=== PATIENT | male | born 1960 | race Caucasian/White ===

== ENCOUNTER 2019-08-07 15:55 | Inpatient (IN) ==
[2019-08-07] MEDS ORDERED: Acetaminophen IV 1,000 MG/100 ML INFUS..BTL IVPB ONE (20:37)
[2019-08-07] MEDS ORDERED: Morphine PCA 30 MG/ 30 ML 30 ML PCA.VIAL IVC PRN (20:46)
[2019-08-07] MEDS ORDERED: 0.9 % Sodium Chloride 1,000 ML IVC SCH (21:00)
[2019-08-07] MEDS ORDERED: Gabapentin 300 MG CAPSULE PO SCH (21:00)
[2019-08-07] MEDS ORDERED: Pantoprazole 40 MG VIAL IVP SCH (21:00)
[2019-08-07] MEDS ORDERED: Ondansetron 4 MG/2 ML VIAL IVP PRN (21:05)
[2019-08-07] MEDS ORDERED: *HR* Succinylcholine 200 MG/10 ML VIAL IVP ONE ×2 (21:24→22:50)
[2019-08-07] MEDS ORDERED: *HR* Propofol 200 MG/20 ML VIAL IVP ONE (21:24)
[2019-08-07] MEDS ORDERED: *HR* Midazolam HCl 2 MG/2 ML VIAL ONE (21:24)
[2019-08-07] MEDS ORDERED: Lidocaine -MPF 2% 2 ML VIAL ONE (21:24)
[2019-08-07] MEDS ORDERED: Lidocaine -MPF 4% 5 ML AMPUL ONE (21:24)
[2019-08-07] MEDS ORDERED: *HR* FentaNYL (PF) 100 MCG/2 ML VIAL ONE (21:24)
[2019-08-07] MEDS ORDERED: *HR* Rocuronium Bromide 50 MG/5 ML VIAL ONE (21:24)
[2019-08-07 21:33] LABS: Basophils % 0.2 %; Eosinophils % 0.1 %; Hematocrit 35.7 % (37.5-50.1); Immature Granulocytes % 0.6 % (0-4); Lymphocytes # 0.8 K/mcL (0.6-4.6); Mean Corpuscular HGB Conc 33.6 g/dL (31.6-35.5); Mean Corpuscular Hemoglobin 31.3 pg (28.0-33.3); Mean Platelet Volume 9.9 fL (9.4-12.4); Monocytes # 0.6 K/mcL (0.0-1.3); Monocytes % 4.4 %; Neutrophils # 11.2 K/mcL (1.6-8.9); Platelet Count 205 K/mcL (140-400); Red Blood Count 3.84 M/mcL (4.19-5.50); Red Cell Distribution Width 14.7 % (11.5-14.5); Segmented Neutrophils % 88.7 %; White Blood Count 12.6 K/mcL (4.3-11.1)
[2019-08-07 21:47] LABS: BUN/Creatinine Ratio 16 (6-26); Blood Urea Nitrogen 17 mg/dL (6-20); Calcium 8.1 mg/dL (8.6-10.3); Carbon Dioxide 19 mEq/L (23-29); Chloride 108 mEq/L (98-107); Glucose 129 mg/dL (70-105); Osmolality,Calculated 279 (280-300); Potassium 3.8 mEq/L (3.5-5.1); Sodium 133 mEq/L (136-145); eGFR For African Americans > 60 (> 60); eGFR For Non-African Americans > 60 (> 60)
[2019-08-07] MEDS ORDERED: Acetaminophen IV 1,000 MG/100 ML INFUS..BTL ONE (22:37)
[2019-08-07] MEDS ORDERED: Famotidine 20 MG/2 ML VIAL ONE (22:37)
[2019-08-07] MEDS ORDERED: Lacri-Lube 3.5 GM TUBE ONE (23:08)
[2019-08-07] MEDS ORDERED: *HR* PHENYLEPHRINE 1,000 MCG/10 ML SYRINGE IVP ONE (23:21)
[2019-08-07] MEDS ORDERED: *HR* Magnesium Sulfate 1 GM/2 ML VIAL ONE (23:52)
[2019-08-07] MEDS ORDERED: Ondansetron 4 MG/2 ML VIAL ONE (23:56)
[2019-08-08] MEDS ORDERED: Piperacillin/Tazobactam 3.375 GM in 0.9 % Sodium Chloride Mini Bag 100 ML IVPB SCH
[2019-08-08] MEDS ORDERED: Acetaminophen IV 1,000 MG/100 ML INFUS..BTL IVPB SCH (02:00)
[2019-08-08] MEDS ORDERED: Ondansetron 4 MG/2 ML VIAL IVP PRN (02:04)
[2019-08-08] MEDS: Morphine PCA 30 MG/ 30 ML 30 ML PCA.VIAL IVC PRN ×2 (03:16→17:48)
[2019-08-08] MEDS: 0.9 % Sodium Chloride 1,000 ML IVC SCH ×3 (03:25→21:22)
[2019-08-08] MEDS: Piperacillin/Tazobactam 3.375 GM in 0.9 % Sodium Chloride Mini Bag 100 ML IVPB SCH ×3 (05:52→21:21)
[2019-08-08] MEDS: *HR* Heparin 5,000 UNIT/ML VIAL SQ SCH ×3 (05:52→17:33)
[2019-08-08] MEDS ORDERED: *HR* Heparin 5,000 UNIT/ML VIAL SQ SCH (06:00)
[2019-08-08 06:09] LABS: Basophils % 0.2 %; Eosinophils % 0.1 %; Hematocrit 31.1 % (37.5-50.1); Hemoglobin 10.4 g/dL (12.9-16.9); Immature Granulocytes % 0.4 % (0-4); Lymphocytes # 0.5 K/mcL (0.6-4.6); Lymphocytes % 4.6 %; Mean Corpuscular HGB Conc 33.4 g/dL (31.6-35.5); Mean Corpuscular Hemoglobin 32.4 pg (28.0-33.3); Mean Corpuscular Volume 96.9 fL (83.0-100.0); Mean Platelet Volume 9.7 fL (9.4-12.4); Monocytes # 0.3 K/mcL (0.0-1.3); Monocytes % 3.3 %; Neutrophils # 9.2 K/mcL (1.6-8.9); Platelet Count 174 K/mcL (140-400); Red Blood Count 3.21 M/mcL (4.19-5.50); Red Cell Distribution Width 14.8 % (11.5-14.5); Segmented Neutrophils % 91.4 %
[2019-08-08 06:33] LABS: BUN/Creatinine Ratio 19 (6-26); Blood Urea Nitrogen 18 mg/dL (6-20); Calcium 7.3 mg/dL (8.6-10.3); Carbon Dioxide 21 mEq/L (23-29); Chloride 106 mEq/L (98-107); Glucose 170 mg/dL (70-105); Osmolality,Calculated 290 (280-300); Sodium 137 mEq/L (136-145); eGFR For African Americans > 60 (> 60); eGFR For Non-African Americans > 60 (> 60)
[2019-08-08] MEDS: Gabapentin 300 MG CAPSULE PO SCH ×3 (09:06→20:20)
[2019-08-08] MEDS: Acetaminophen IV 1,000 MG/100 ML INFUS..BTL IVPB SCH ×3 (09:11→21:22)
[2019-08-08] MEDS: Pantoprazole 40 MG VIAL IVP SCH (09:15)
[2019-08-09] MEDS: Acetaminophen IV 1,000 MG/100 ML INFUS..BTL IVPB SCH ×4 (03:07→20:23)
[2019-08-09] MEDS: Morphine PCA 30 MG/ 30 ML 30 ML PCA.VIAL IVC PRN ×3 (04:54→22:03)
[2019-08-09 04:55] LABS: Basophils % 0.1 %; Eosinophils % 0.1 %; Hematocrit 32.5 % (37.5-50.1); Hemoglobin 11.1 g/dL (12.9-16.9); Immature Granulocytes % 0.6 % (0-4); Lymphocytes # 0.6 K/mcL (0.6-4.6); Lymphocytes % 4.8 %; Mean Corpuscular HGB Conc 34.2 g/dL (31.6-35.5); Mean Corpuscular Hemoglobin 32.5 pg (28.0-33.3); Mean Platelet Volume 10.1 fL (9.4-12.4); Monocytes # 0.5 K/mcL (0.0-1.3); Monocytes % 3.6 %; Neutrophils # 12.2 K/mcL (1.6-8.9); Platelet Count 216 K/mcL (140-400); Red Blood Count 3.42 M/mcL (4.19-5.50); Segmented Neutrophils % 90.8 %; White Blood Count 13.4 K/mcL (4.3-11.1)
[2019-08-09] MEDS: Piperacillin/Tazobactam 3.375 GM in 0.9 % Sodium Chloride Mini Bag 100 ML IVPB SCH ×3 (05:13→22:01)
[2019-08-09] MEDS: *HR* Heparin 5,000 UNIT/ML VIAL SQ SCH ×2 (05:13→18:17)
[2019-08-09] MEDS: 0.9 % Sodium Chloride 1,000 ML IVC SCH ×3 (05:14→22:11)
[2019-08-09 05:42] LABS: Blood Urea Nitrogen 22 mg/dL (6-20); Calcium 7.8 mg/dL (8.6-10.3); Chloride 111 mEq/L (98-107); Glucose 120 mg/dL (70-105); Osmolality,Calculated 295 (280-300); Potassium 4.1 mEq/L (3.5-5.1); Sodium 140 mEq/L (136-145)
[2019-08-09 06:38] LABS: BUN/Creatinine Ratio 25 (6-26); Carbon Dioxide 21 mEq/L (23-29); eGFR For African Americans > 60 (> 60); eGFR For Non-African Americans > 60 (> 60)
[2019-08-09] MEDS: Pantoprazole 40 MG VIAL IVP SCH (09:44)
[2019-08-09] MEDS: Gabapentin 300 MG CAPSULE PO SCH ×3 (09:44→20:24)
[2019-08-10] MEDS: Acetaminophen IV 1,000 MG/100 ML INFUS..BTL IVPB SCH ×4 (02:01→19:47)
[2019-08-10] MEDS: 0.9 % Sodium Chloride 1,000 ML IVC SCH ×3 (05:42→23:47)
[2019-08-10] MEDS: Piperacillin/Tazobactam 3.375 GM in 0.9 % Sodium Chloride Mini Bag 100 ML IVPB SCH ×3 (05:44→21:16)
[2019-08-10] MEDS: *HR* Heparin 5,000 UNIT/ML VIAL SQ SCH ×2 (05:48→17:45)
[2019-08-10 06:43] LABS: Basophils % 0.2 %; Eosinophils # 0.5 K/mcL (0.0-0.6); Hematocrit 33.5 % (37.5-50.1); Hemoglobin 11.4 g/dL (12.9-16.9); Immature Granulocytes % 0.5 % (0-4); Lymphocytes # 2.2 K/mcL (0.6-4.6); Lymphocytes % 17.2 %; Mean Corpuscular Hemoglobin 32.2 pg (28.0-33.3); Mean Corpuscular Volume 94.6 fL (83.0-100.0); Monocytes # 0.5 K/mcL (0.0-1.3); Monocytes % 3.9 %; Neutrophils # 9.5 K/mcL (1.6-8.9); Platelet Count 262 K/mcL (140-400); Red Blood Count 3.54 M/mcL (4.19-5.50); Red Cell Distribution Width 15.1 % (11.5-14.5); Segmented Neutrophils % 74.2 %; White Blood Count 12.8 K/mcL (4.3-11.1)
[2019-08-10 07:00] LABS: Platelet Estimate Normal (Normal); Reactive Lymphocytes Present (Not Present)
[2019-08-10 07:02] LABS: BUN/Creatinine Ratio 22 (6-26); Blood Urea Nitrogen 20 mg/dL (6-20); Calcium 7.7 mg/dL (8.6-10.3); Carbon Dioxide 22 mEq/L (23-29); Chloride 108 mEq/L (98-107); Glucose 97 mg/dL (70-105); Osmolality,Calculated 289 (280-300); Potassium 3.8 mEq/L (3.5-5.1); Sodium 138 mEq/L (136-145); eGFR For African Americans > 60 (> 60); eGFR For Non-African Americans > 60 (> 60)
[2019-08-10] MEDS: Gabapentin 300 MG CAPSULE PO SCH ×3 (09:44→21:16)
[2019-08-10] MEDS: *HR* OxyCODONE/APAP 10/325 TABLET PO PRN ×2 (09:44→19:01)
[2019-08-10] MEDS: Pantoprazole 40 MG VIAL IVP SCH (09:45)
[2019-08-10] MEDS: Nicotine 21 MG PATCH.TD24 TD SCH (10:53)
[2019-08-10] MEDS: Ketorolac 15 MG/ML VIAL IVP SCH ×3 (10:53→23:46)
[2019-08-10] MEDS ORDERED: Furosemide 40 MG/4 ML VIAL IVP ONE (12:47)
[2019-08-10] MEDS: Fluconazole 400 MG/200 ML 400 MG/200 ML BAG IVPB SCH (13:24)
[2019-08-11] MEDS: Acetaminophen IV 1,000 MG/100 ML INFUS..BTL IVPB SCH ×4 (02:02→19:38)
[2019-08-11] MEDS: *HR* Heparin 5,000 UNIT/ML VIAL SQ SCH ×2 (05:47→18:10)
[2019-08-11] MEDS: Ketorolac 15 MG/ML VIAL IVP SCH ×3 (05:47→18:10)
[2019-08-11] MEDS: Piperacillin/Tazobactam 3.375 GM in 0.9 % Sodium Chloride Mini Bag 100 ML IVPB SCH ×3 (05:49→21:41)
[2019-08-11] MEDS: Gabapentin 300 MG CAPSULE PO SCH ×3 (08:23→21:41)
[2019-08-11] MEDS: Fluconazole 400 MG/200 ML 400 MG/200 ML BAG IVPB SCH (08:23)
[2019-08-11] MEDS: 0.9 % Sodium Chloride 1,000 ML IVC SCH (08:24)
[2019-08-11] MEDS: Pantoprazole 40 MG VIAL IVP SCH (08:24)
[2019-08-11] MEDS: Nicotine 21 MG PATCH.TD24 TD SCH (08:24)
[2019-08-12] MEDS: Ketorolac 15 MG/ML VIAL IVP SCH ×5 (00:30→23:12)
[2019-08-12] MEDS: Acetaminophen IV 1,000 MG/100 ML INFUS..BTL IVPB SCH ×4 (02:02→19:48)
[2019-08-12] MEDS: *HR* Heparin 5,000 UNIT/ML VIAL SQ SCH ×2 (05:51→18:18)
[2019-08-12] MEDS: Piperacillin/Tazobactam 3.375 GM in 0.9 % Sodium Chloride Mini Bag 100 ML IVPB SCH ×3 (05:52→23:12)
[2019-08-12] MEDS: Pantoprazole 40 MG VIAL IVP SCH (08:13)
[2019-08-12] MEDS: Nicotine 21 MG PATCH.TD24 TD SCH (08:13)
[2019-08-12] MEDS: Fluconazole 400 MG/200 ML 400 MG/200 ML BAG IVPB SCH (08:14)
[2019-08-12] MEDS: Gabapentin 300 MG CAPSULE PO SCH ×3 (08:14→20:07)
[2019-08-13] MEDS: Acetaminophen IV 1,000 MG/100 ML INFUS..BTL IVPB SCH ×2 (01:38→08:32)
[2019-08-13] MEDS: Piperacillin/Tazobactam 3.375 GM in 0.9 % Sodium Chloride Mini Bag 100 ML IVPB SCH (05:49)
[2019-08-13] MEDS: Ketorolac 15 MG/ML VIAL IVP SCH (05:50)
[2019-08-13] MEDS: *HR* Heparin 5,000 UNIT/ML VIAL SQ SCH (05:50)
[2019-08-13 06:44] VITALS: BP 145/95
[2019-08-13] MEDS: Nicotine 21 MG PATCH.TD24 TD SCH (08:33)
[2019-08-13] MEDS: Gabapentin 300 MG CAPSULE PO SCH (08:33)
[2019-08-13] MEDS: Pantoprazole 40 MG VIAL IVP SCH (08:34)
[2019-08-13] MEDS: Fluconazole 400 MG/200 ML 400 MG/200 ML BAG IVPB SCH (08:35)
== END 2019-08-13 13:26 | disposition home or self-care (01) | DRG 329 ==
LOC: 3ANU
PROVIDERS: ADMIT Surgery; ATTEND Surgery

== ENCOUNTER 2020-03-18 06:12 | Inpatient (IN) ==
[2020-03-18] MEDS ORDERED: cefOXitin 2,000 MG in Water for inj. (sterile) 20 ML IVP ONE (06:50)
[2020-03-18] MEDS ORDERED: *HR* OxyCODONE Immed Rel 5 MG TABLET PO PRN ×2 (07:00→12:45)
[2020-03-18] MEDS ORDERED: *HR* HYDROmorphone 2 MG TABLET PO PRN (07:00)
[2020-03-18] MEDS ORDERED: Pregabalin 75 MG CAPSULE PO ONE (07:00)
[2020-03-18] MEDS ORDERED: *HR* Labetalol 20 MG/4 ML SYRINGE IVP PRN (07:00)
[2020-03-18] MEDS ORDERED: Famotidine 20 MG/2 ML VIAL IVP ONE (07:00)
[2020-03-18] MEDS ORDERED: Acetaminophen IV 1,000 MG/100 ML BAG IVPB ONE (07:00)
[2020-03-18] MEDS ORDERED: *HR* Promethazine 25 MG/ML VIAL IVP PRN (07:00)
[2020-03-18] MEDS ORDERED: *HR* FentaNYL (PF) 100 MCG/2 ML VIAL ONE (07:06)
[2020-03-18] MEDS ORDERED: Ondansetron 4 MG/2 ML VIAL ONE (07:06)
[2020-03-18] MEDS ORDERED: *HR* Rocuronium Bromide 50 MG/5 ML VIAL ONE (07:06)
[2020-03-18] MEDS ORDERED: *HR* Propofol 200 MG/20 ML VIAL IVP ONE ×2 (07:06→09:48)
[2020-03-18] MEDS ORDERED: *HR* Midazolam HCl 2 MG/2 ML VIAL ONE (07:06)
[2020-03-18] MEDS ORDERED: Lidocaine -MPF 2% 2 ML VIAL ONE (07:06)
[2020-03-18] MEDS ORDERED: Dexamethasone 4 MG/ML VIAL ONE (07:11)
[2020-03-18] MEDS: Ringers Solution, Lactated 1,000 ML IVC SCH ×2 (07:41→12:04)
[2020-03-18] MEDS ORDERED: Lidocaine -MPF 4% 5 ML AMPUL ONE (08:04)
[2020-03-18] MEDS ORDERED: *HR* PHENYLEPHRINE 1,000 MCG/10 ML SYRINGE IVP ONE (08:12)
[2020-03-18] MEDS ORDERED: *HR* HYDROMORPHONE 2 MG/ML VIAL ONE (09:49)
[2020-03-18] MEDS: *HR* HYDROmorphone PF 0.5 MG/0.5 ML SYRINGE IVP PRN ×2 (11:09→11:29)
[2020-03-18] MEDS ORDERED: Naloxone 0.4 MG/ML INJ IVP PRN (12:45)
[2020-03-18] MEDS ORDERED: Morphine Sulfate Oral CONC 10 MG/0.5 ML ORAL.SYG SL PRN (12:45)
[2020-03-18] MEDS ORDERED: Ketorolac 30 MG/ML VIAL IVP SCH (12:45)
[2020-03-18] MEDS ORDERED: Ondansetron 4 MG/2 ML VIAL IVP PRN (12:45)
[2020-03-18] MEDS ORDERED: Acetaminophen IV 1,000 MG/100 ML BAG IVPB SCH (13:00)
[2020-03-18] MEDS: 0.9 % Sodium Chloride 1,000 ML IVC SCH (13:53)
[2020-03-18] MEDS: cefOXitin 1,000 MG in Water for inj. (sterile) 10 ML IVP SCH (15:04)
[2020-03-18] MEDS: Nicotine 21 MG PATCH.TD24 TD SCH (20:38)
[2020-03-18] MEDS: Ketorolac 30 MG/ML VIAL IVP SCH (20:39)
[2020-03-18] MEDS: Acetaminophen IV 1,000 MG/100 ML BAG IVPB SCH (20:39)
[2020-03-19] MEDS: cefOXitin 1,000 MG in Water for inj. (sterile) 10 ML IVP SCH ×2 (00:16→09:34)
[2020-03-19] MEDS: Ketorolac 30 MG/ML VIAL IVP SCH ×3 (02:46→15:19)
[2020-03-19] MEDS: 0.9 % Sodium Chloride 1,000 ML IVC SCH (02:46)
[2020-03-19] MEDS: Acetaminophen IV 1,000 MG/100 ML BAG IVPB SCH ×3 (02:47→15:20)
[2020-03-19 04:26] LABS: Basophils % 0.1 %; Eosinophils % 0.1 %; Hematocrit 38.7 % (37.5-50.1); Hemoglobin 13.2 g/dL (12.9-16.9); Immature Granulocytes % 0.5 % (0-4); Lymphocytes # 1.5 K/mcL (0.6-4.6); Lymphocytes % 11.3 %; Mean Corpuscular HGB Conc 34.1 g/dL (31.6-35.5); Mean Corpuscular Hemoglobin 32.3 pg (28.0-33.3); Mean Corpuscular Volume 94.6 fL (83.0-100.0); Mean Platelet Volume 9.8 fL (9.4-12.4); Monocytes # 0.8 K/mcL (0.0-1.3); Monocytes % 5.7 %; Platelet Count 209 K/mcL (140-400); Red Blood Count 4.09 M/mcL (4.19-5.50); Red Cell Distribution Width 14.3 % (11.5-14.5); Segmented Neutrophils % 82.3 %; White Blood Count 13.4 K/mcL (4.3-11.1)
[2020-03-19 04:45] LABS: BUN/Creatinine Ratio 12 (6-26); Blood Urea Nitrogen 13 mg/dL (6-20); Calcium 8.4 mg/dL (8.6-10.3); Carbon Dioxide 23 mEq/L (23-29); Chloride 104 mEq/L (98-107); Glucose 114 mg/dL (70-105); Osmolality,Calculated 277 (280-300); Potassium 4.8 mEq/L (3.5-5.1); Sodium 133 mEq/L (136-145); eGFR For African Americans > 60 (> 60); eGFR For Non-African Americans > 60 (> 60)
[2020-03-19] MEDS: Nicotine 21 MG PATCH.TD24 TD SCH (09:33)
[2020-03-19] MEDS ORDERED: *HR* Heparin 5,000 UNIT/ML VIAL SQ SCH (10:29)
[2020-03-19 11:15] VITALS: BP 154/76
== END 2020-03-19 16:09 | disposition home or self-care (01) | DRG 331 ==
LOC: SAMDAY 06:12 → 3ANU 07:08
PROVIDERS: ADMIT Surgery; ATTEND Surgery

== ENCOUNTER 2021-11-26 16:00 | Inpatient (IN) ==
[2021-11-26] MEDS ORDERED: *HR* Ticagrelor 90 MG TABLET PO ONE (16:17)
[2021-11-26] MEDS ORDERED: Aspirin 325 MG TABLET PO ONE (16:17)
[2021-11-26] MEDS ORDERED: *HR* Heparin 5,000 UNIT/ML VIAL IVP ONE (16:18)
[2021-11-26] MEDS ORDERED: methylPREDNISolone 125 MG/2 ML VIAL ONE (16:22)
[2021-11-26] MEDS ORDERED: *HR* Heparin 10,000 UNIT/10 ML VIAL ONE ×2 (16:23→17:52)
[2021-11-26] MEDS ORDERED: Heparin 1,000 UNITS/500 mL 500 ML ONE ×2 (16:23→17:15)
[2021-11-26] MEDS ORDERED: *HR* FentaNYL (PF) 100 MCG/2 ML VIAL ONE (16:25)
[2021-11-26] MEDS ORDERED: *HR* Midazolam HCl 2 MG/2 ML VIAL ONE (16:25)
[2021-11-26 16:45] LABS: Basophils % 0.3 %; Eosinophils # 0.1 K/mcL (0.0-0.6); Eosinophils % 1.1 %; Hematocrit 33.2 % (37.5-50.1); Hemoglobin 10.9 g/dL (12.9-16.9); Immature Granulocytes % 0.4 % (0-4); Lymphocytes # 2.3 K/mcL (0.6-4.6); Lymphocytes % 19.7 %; Mean Corpuscular HGB Conc 32.8 g/dL (31.6-35.5); Mean Corpuscular Hemoglobin 30.5 pg (28.0-33.3); Mean Platelet Volume 10.1 fL (9.4-12.4); Monocytes # 1.1 K/mcL (0.0-1.3); Monocytes % 8.9 %; Neutrophils # 8.2 K/mcL (1.6-8.9); Platelet Count 239 K/mcL (140-400); Red Blood Count 3.57 M/mcL (4.19-5.50); Segmented Neutrophils % 69.6 %; White Blood Count 11.7 K/mcL (4.3-11.1)
[2021-11-26] MEDS ORDERED: *HR* Atropine Sulfate 1 MG/10 ML SYRINGE ONE (16:47)
[2021-11-26] MEDS ORDERED: Tirofiban 12.5 MG/250ML 12.5 MG/250 ML BAG ONE (16:49)
[2021-11-26 16:51] LABS: INR 1.2; Prothrombin Time 13.4 Seconds (9.4-12.1)
[2021-11-26 16:55] LABS: Activated Partial Thrombo Time 29.1 Seconds (26.0-36.0)
[2021-11-26] MEDS ORDERED: Perflutren Lipid Microsphere 1.3 ML in 0.9 % Sodium Chloride 8.7 ML IVP PRN (17:01)
[2021-11-26] MEDS ORDERED: ISOVUE-370 200 ML INFUS..BTL ONE ×2 (17:04→17:53)
[2021-11-26 17:12] LABS: BUN/Creatinine Ratio 18 (6-26); Blood Urea Nitrogen 24 mg/dL (6-20); Calcium 9.1 mg/dL (8.6-10.3); Carbon Dioxide 25 mEq/L (23-29); Chloride 95 mEq/L (98-107); Glucose 116 mg/dL (70-105); Osmolality,Calculated 277 (280-300); Potassium 3.7 mEq/L (3.5-5.1); Sodium 131 mEq/L (136-145); Troponin I 36.75 ng/mL (< 0.04); eGFR For African Americans > 60 (> 60); eGFR For Non-African Americans 54 (> 60)
[2021-11-26] MEDS ORDERED: Nitroglycerin 0.4 MG TAB.SUBL SL PRN (17:44)
[2021-11-26] MEDS ORDERED: Acetaminophen 325 MG TABLET PO PRN (17:44)
[2021-11-26] MEDS ORDERED: Heparin 1,000 UNITS/500 mL 0 ML ONE (17:52)
[2021-11-26] MEDS ORDERED: 0.9 % Sodium Chloride 2,000 ML ONE (17:53)
[2021-11-26] MEDS ORDERED: Nitroglycerin 1,000 MCG/5 ML VIAL IV ONE (17:53)
[2021-11-26] MEDS: Metoprolol XL (24 HR) Succ 50 MG TAB.ER.24H PO SCH (18:14)
[2021-11-26] MEDS ORDERED: Tirofiban 12.5 MG/250ML 12.5 MG/250 ML BAG IVC SCH (18:15)
[2021-11-26] MEDS: *HR* Ticagrelor 90 MG TABLET PO SCH (20:23)
[2021-11-27 05:25] LABS: Basophils % 0.3 %; Eosinophils # 0.1 K/mcL (0.0-0.6); Eosinophils % 0.4 %; Hematocrit 28.4 % (37.5-50.1); Hemoglobin 9.6 g/dL (12.9-16.9); Immature Granulocytes % 0.3 % (0-4); Lymphocytes # 1.6 K/mcL (0.6-4.6); Lymphocytes % 13.8 %; Mean Corpuscular HGB Conc 33.8 g/dL (31.6-35.5); Mean Corpuscular Hemoglobin 31.9 pg (28.0-33.3); Mean Corpuscular Volume 94.4 fL (83.0-100.0); Mean Platelet Volume 10.3 fL (9.4-12.4); Monocytes % 8.8 %; Neutrophils # 8.9 K/mcL (1.6-8.9); Platelet Count 225 K/mcL (140-400); Red Blood Count 3.01 M/mcL (4.19-5.50); Red Cell Distribution Width 15.2 % (11.5-14.5); Segmented Neutrophils % 76.4 %; White Blood Count 11.6 K/mcL (4.3-11.1)
[2021-11-27 06:08] LABS: BUN/Creatinine Ratio 19 (6-26); Blood Urea Nitrogen 23 mg/dL (6-20); Calcium 8.5 mg/dL (8.6-10.3); Carbon Dioxide 23 mEq/L (23-29); Chloride 98 mEq/L (98-107); Glucose 121 mg/dL (70-105); Osmolality,Calculated 279 (280-300); Potassium 3.8 mEq/L (3.5-5.1); Sodium 132 mEq/L (136-145); Troponin I 44.19 ng/mL (< 0.04); eGFR For African Americans > 60 (> 60); eGFR For Non-African Americans > 60 (> 60)
[2021-11-27] MEDS: Metoprolol XL (24 HR) Succ 50 MG TAB.ER.24H PO SCH ×2 (07:22→19:42)
[2021-11-27] MEDS: *HR* Ticagrelor 90 MG TABLET PO SCH ×2 (07:22→19:42)
[2021-11-27] MEDS ORDERED: Aspirin 81 MG TAB.CHEW PO SCH (09:00)
[2021-11-27] MEDS ORDERED: Acetaminophen 325 MG TABLET PO PRN (11:39)
[2021-11-27] MEDS ORDERED: Nitroglycerin 0.4 MG TAB.SUBL SL PRN (11:39)
[2021-11-27] MEDS: Colchicine 0.6 MG TABLET PO SCH ×2 (15:25→19:42)
[2021-11-27] MEDS: *HR* Heparin 5,000 UNIT/ML VIAL SQ SCH (18:16)
[2021-11-27] MEDS ORDERED: Metoprolol XL (24 HR) Succ 50 MG TAB.ER.24H PO SCH (21:00)
[2021-11-28 03:39] LABS: Basophils % 0.4 %; Eosinophils # 0.2 K/mcL (0.0-0.6); Eosinophils % 1.9 %; Hematocrit 25.6 % (37.5-50.1); Hemoglobin 8.7 g/dL (12.9-16.9); Immature Granulocytes % 0.4 % (0-4); Lymphocytes # 1.6 K/mcL (0.6-4.6); Lymphocytes % 17.1 %; Mean Corpuscular Hemoglobin 31.5 pg (28.0-33.3); Mean Corpuscular Volume 92.8 fL (83.0-100.0); Mean Platelet Volume 10.2 fL (9.4-12.4); Monocytes # 0.8 K/mcL (0.0-1.3); Monocytes % 8.4 %; Neutrophils # 6.8 K/mcL (1.6-8.9); Platelet Count 232 K/mcL (140-400); Red Blood Count 2.76 M/mcL (4.19-5.50); Red Cell Distribution Width 15.1 % (11.5-14.5); Segmented Neutrophils % 71.8 %; White Blood Count 9.4 K/mcL (4.3-11.1)
[2021-11-28 03:58] LABS: BUN/Creatinine Ratio 23 (6-26); Blood Urea Nitrogen 27 mg/dL (6-20); Calcium 8.5 mg/dL (8.6-10.3); Carbon Dioxide 24 mEq/L (23-29); Chloride 102 mEq/L (98-107); Glucose 116 mg/dL (70-105); Osmolality,Calculated 282 (280-300); Potassium 3.6 mEq/L (3.5-5.1); Sodium 133 mEq/L (136-145); eGFR For African Americans > 60 (> 60); eGFR For Non-African Americans > 60 (> 60)
[2021-11-28] MEDS: *HR* Heparin 5,000 UNIT/ML VIAL SQ SCH (05:24)
[2021-11-28] MEDS: *HR* Ticagrelor 90 MG TABLET PO SCH ×2 (07:20→20:13)
[2021-11-28] MEDS: Colchicine 0.6 MG TABLET PO SCH ×2 (07:20→20:13)
[2021-11-28] MEDS: Metoprolol XL (24 HR) Succ 50 MG TAB.ER.24H PO SCH ×2 (07:20→20:13)
[2021-11-28] MEDS: Aspirin 81 MG TAB.CHEW PO SCH (08:35)
[2021-11-28] MEDS ORDERED: Isovue-370 500 ML BOTTLE IVP ONE (09:38)
[2021-11-28] MEDS ORDERED: *HR* Heparin 5,000 UNIT/ML VIAL IVP PRN ×2 (11:52)
[2021-11-28] MEDS ORDERED: *HR* Heparin 5,000 UNIT/ML VIAL IVP ONE (11:52)
[2021-11-28] MEDS: Heparin 25,000UNIT/250ML 1/2NS 25,000 UNIT/250 ML IV.SOLN IVC SCH (12:38)
[2021-11-28 13:01] LABS: Heparin anti-factor XA UFH < 0.04 IU/mL (0.30-0.70)
[2021-11-28 13:02] LABS: INR 1.2; Prothrombin Time 13.3 Seconds (9.4-12.1)
[2021-11-28 13:05] LABS: Hematocrit 34.5 % (37.5-50.1); Mean Corpuscular HGB Conc 32.8 g/dL (31.6-35.5); Mean Corpuscular Hemoglobin 30.7 pg (28.0-33.3); Mean Corpuscular Volume 93.8 fL (83.0-100.0); Mean Platelet Volume 10.1 fL (9.4-12.4); Platelet Count 284 K/mcL (140-400); Red Blood Count 3.68 M/mcL (4.19-5.50); Red Cell Distribution Width 15.2 % (11.5-14.5); White Blood Count 9.4 K/mcL (4.3-11.1)
[2021-11-28 13:09] LABS: Hemoglobin 11.3 g/dL (12.9-16.9)
[2021-11-28 18:38] LABS: Basophils # 0.1 K/mcL (0.0-0.2); Basophils % 0.8 %; Eosinophils # 0.4 K/mcL (0.0-0.6); Eosinophils % 4.5 %; Hematocrit 28.7 % (37.5-50.1); Immature Granulocytes % 0.4 % (0-4); Lymphocytes # 1.8 K/mcL (0.6-4.6); Lymphocytes % 22.6 %; Mean Corpuscular HGB Conc 33.4 g/dL (31.6-35.5); Mean Corpuscular Hemoglobin 31.3 pg (28.0-33.3); Mean Corpuscular Volume 93.5 fL (83.0-100.0); Mean Platelet Volume 10.1 fL (9.4-12.4); Monocytes # 0.7 K/mcL (0.0-1.3); Monocytes % 9.2 %; Neutrophils # 4.9 K/mcL (1.6-8.9); Platelet Count 245 K/mcL (140-400); Red Blood Count 3.07 M/mcL (4.19-5.50); Red Cell Distribution Width 15.1 % (11.5-14.5); Segmented Neutrophils % 62.5 %; White Blood Count 7.8 K/mcL (4.3-11.1)
[2021-11-28 18:39] LABS: Hemoglobin 9.6 g/dL (12.9-16.9)
[2021-11-29 01:42] LABS: Basophils # 0.1 K/mcL (0.0-0.2); Basophils % 0.7 %; Eosinophils # 0.4 K/mcL (0.0-0.6); Eosinophils % 5.6 %; Hematocrit 26.7 % (37.5-50.1); Hemoglobin 8.7 g/dL (12.9-16.9); Immature Granulocytes % 0.4 % (0-4); Lymphocytes # 1.9 K/mcL (0.6-4.6); Lymphocytes % 26.7 %; Mean Corpuscular HGB Conc 32.6 g/dL (31.6-35.5); Mean Corpuscular Hemoglobin 30.4 pg (28.0-33.3); Mean Corpuscular Volume 93.4 fL (83.0-100.0); Mean Platelet Volume 10.3 fL (9.4-12.4); Monocytes # 0.7 K/mcL (0.0-1.3); Monocytes % 10.2 %; Neutrophils # 4.1 K/mcL (1.6-8.9); Platelet Count 233 K/mcL (140-400); Red Blood Count 2.86 M/mcL (4.19-5.50); Red Cell Distribution Width 15.2 % (11.5-14.5); Segmented Neutrophils % 56.4 %; White Blood Count 7.3 K/mcL (4.3-11.1)
[2021-11-29 01:51] LABS: BUN/Creatinine Ratio 20 (6-26); Blood Urea Nitrogen 23 mg/dL (6-20); Calcium 8.5 mg/dL (8.6-10.3); Carbon Dioxide 22 mEq/L (23-29); Chloride 106 mEq/L (98-107); Glucose 121 mg/dL (70-105); Osmolality,Calculated 289 (280-300); Potassium 3.7 mEq/L (3.5-5.1); Sodium 137 mEq/L (136-145); eGFR For African Americans > 60 (> 60); eGFR For Non-African Americans > 60 (> 60)
[2021-11-29] MEDS: Heparin 25,000UNIT/250ML 1/2NS 25,000 UNIT/250 ML IV.SOLN IVC SCH (02:03)
[2021-11-29] MEDS: Colchicine 0.6 MG TABLET PO SCH ×2 (08:48→19:25)
[2021-11-29] MEDS: Metoprolol XL (24 HR) Succ 50 MG TAB.ER.24H PO SCH ×2 (08:49→19:24)
[2021-11-29] MEDS: Aspirin 81 MG TAB.CHEW PO SCH (08:49)
[2021-11-29] MEDS: Apixaban 5 MG TABLET PO SCH ×2 (10:12→19:25)
[2021-11-29 14:13] LABS: Basophils # 0.1 K/mcL (0.0-0.2); Basophils % 0.8 %; Eosinophils # 0.6 K/mcL (0.0-0.6); Eosinophils % 7.2 %; Hematocrit 27.3 % (37.5-50.1); Hemoglobin 9.2 g/dL (12.9-16.9); Immature Granulocytes % 1.3 % (0-4); Lymphocytes # 1.7 K/mcL (0.6-4.6); Lymphocytes % 21.6 %; Mean Corpuscular HGB Conc 33.7 g/dL (31.6-35.5); Mean Corpuscular Hemoglobin 30.6 pg (28.0-33.3); Mean Corpuscular Volume 90.7 fL (83.0-100.0); Mean Platelet Volume 9.9 fL (9.4-12.4); Monocytes # 0.7 K/mcL (0.0-1.3); Monocytes % 8.8 %; Neutrophils # 4.6 K/mcL (1.6-8.9); Platelet Count 253 K/mcL (140-400); Red Blood Count 3.01 M/mcL (4.19-5.50); Red Cell Distribution Width 15.1 % (11.5-14.5); Segmented Neutrophils % 60.3 %; White Blood Count 7.6 K/mcL (4.3-11.1)
[2021-11-30 03:13] LABS: Basophils # 0.1 K/mcL (0.0-0.2); Basophils % 0.6 %; Eosinophils # 0.6 K/mcL (0.0-0.6); Eosinophils % 7.6 %; Hematocrit 27.4 % (37.5-50.1); Hemoglobin 9.1 g/dL (12.9-16.9); Immature Granulocytes % 0.2 % (0-4); Lymphocytes # 2.1 K/mcL (0.6-4.6); Lymphocytes % 25.7 %; Mean Corpuscular HGB Conc 33.2 g/dL (31.6-35.5); Mean Corpuscular Hemoglobin 31.2 pg (28.0-33.3); Mean Corpuscular Volume 93.8 fL (83.0-100.0); Mean Platelet Volume 9.7 fL (9.4-12.4); Monocytes # 0.7 K/mcL (0.0-1.3); Monocytes % 8.8 %; Neutrophils # 4.7 K/mcL (1.6-8.9); Platelet Count 292 K/mcL (140-400); Red Blood Count 2.92 M/mcL (4.19-5.50); Red Cell Distribution Width 15.1 % (11.5-14.5); Segmented Neutrophils % 57.1 %; White Blood Count 8.2 K/mcL (4.3-11.1)
[2021-11-30 03:30] LABS: BUN/Creatinine Ratio 16 (6-26); Blood Urea Nitrogen 17 mg/dL (6-20); Calcium 8.6 mg/dL (8.6-10.3); Carbon Dioxide 22 mEq/L (23-29); Chloride 105 mEq/L (98-107); Glucose 126 mg/dL (70-105); Osmolality,Calculated 285 (280-300); Sodium 136 mEq/L (136-145); eGFR For African Americans > 60 (> 60); eGFR For Non-African Americans > 60 (> 60)
[2021-11-30] MEDS: Aspirin 81 MG TAB.CHEW PO SCH (07:50)
[2021-11-30] MEDS: Apixaban 5 MG TABLET PO SCH (07:50)
[2021-11-30] MEDS: Metoprolol XL (24 HR) Succ 50 MG TAB.ER.24H PO SCH (07:50)
[2021-11-30] MEDS: Colchicine 0.6 MG TABLET PO SCH (07:50)
[2021-11-30 11:15] VITALS: BP 127/76; PULSE 92; TEMP 98.1; O2SAT 97
== END 2021-11-30 12:14 | disposition home or self-care (01) | DRG 246 ==
LOC: EMEROOARM 16:00 → ICNU 17:35 → 2NENU 11-28 13:41
PROVIDERS: ADMIT Internal Medicine Cardiovascular Disease; ATTEND Internal Medicine Cardiovascular Disease